=== PATIENT | male | born 1960 | race Caucasian/White ===

== ENCOUNTER 2025-04-30 03:41 | Inpatient (IN) | payer MEDICAID, OTHER ==
[~2025-04-30] VITALS: Ht 175.3 cm; Wt 67.1 kg
[2025-04-30] MEDS ORDERED: BUPR-50 PO (04:03)
[2025-04-30] MEDS ORDERED: BENZ-247 PO (04:04)
[2025-04-30 04:06] LABS: PLATELET COUNT (AUTO) 270 K/uL (150-450); RED BLOOD CELL COUNT(AUTO) 5.10 MIL/uL (4.50-5.90); RED CELL DISTRIBUTION WIDTH 13.9 % (11.5-14.5); WHITE BLOOD COUNT (AUTO) 8.6 K/uL (4.5-11.0)
[2025-04-30 04:06] LABS: COVID AG,FIA SOURCE NASAL SWAB
[2025-04-30 04:14] LABS: CALCIUM, TOTAL 9.7 mg/dL (8.8-10.5); CREATININE 0.98 mg/dL (0.60-1.30); GLOMERULAR FILTR. RATE CALC > 60 mL/min (>60); GLUCOSE,RANDOM 101 mg/dL (70-110); SODIUM SERUM 133 mmol/L (136-145); UREA NITROGEN, BLOOD 17 mg/dL (7-18)
[2025-04-30 04:15] LABS: SARS-COV2 (COVID) ANTIGEN,FIA Negative (Negative)
[2025-04-30 04:58] LABS: APPEARANCE,URINE CLEAR (CLEAR); GLUCOSE, URINE (UA) NEGATIVE (NEGATIVE); LEUKOCYTE ESTERASE ,URINE NEGATIVE (NEGATIVE); NITRATE,URINE NEGATIVE (NEGATIVE); OCCULT BLOOD,URINE NEGATIVE (NEGATIVE); PH,URINE DRUG SCREEN 7.0 (5.0-8.0); SPECIFIC GRAVITIY, URINE 1.016 (1.003-1.030)
[2025-04-30 05:03] LABS: ALCOHOL, URINE DRUG SCREEN NEGATIVE (NEGATIVE); AMPHET/METH SCREEN,URINE NEGATIVE (NEGATIVE); BARBITURATE SCREEN, URINE NEGATIVE (NEGATIVE); CANNABINOID SCREEN,URINE POSITIVE (NEGATIVE); COCAINE SCREEN,URINE NEGATIVE (NEGATIVE); METHADONE SCREEN, URINE NEGATIVE (NEGATIVE)
[2025-04-30 08:06] VITALS: O2SAT 100
[2025-04-30 11:23] VITALS: BP 108/73; PULSE 87; RESP 17; TEMP 97.3; O2SAT 98
[2025-04-30] MEDS ORDERED: INFLUENZA VIRUS VACCINE TVS (6MO+) 2025-26/PF 45 MCG/0.5 ML SYRINGE IM. ONE (13:15)
[2025-04-30] MEDS: NICOTINE POLACRILEX 2 MG LOZENGE PO PRN (18:34)
[2025-04-30 20:20] VITALS: BP 103/59; PULSE 78; RESP 16; TEMP 97.4; O2SAT 96
[2025-04-30] MEDS ORDERED: DOCUSATE SODIUM 100 MG CAPSULE PO PRN (21:15)
[2025-04-30] MEDS ORDERED: ONDANSETRON 4 MG TABLET PO PRN (21:15)
[2025-04-30] MEDS ORDERED: NICOTINE 14 MG/24 HOUR PATCH TD PRN (21:15)
[2025-04-30] MEDS ORDERED: MAG HYDROX/ALUMINUM HYD/SIMETH ES 30 ML SUSPENSION UDCUP PO PRN (21:15)
[2025-04-30] MEDS ORDERED: ALBUTEROL SULFATE HFA 90 MCG/PUFF 8 GM INHALER IH PRN (21:15)
[2025-04-30] MEDS ORDERED: MAGNESIUM HYDROXIDE SUSPENSION 30 ML UDCUP PO PRN (21:15)
[2025-04-30] MEDS ORDERED: IBUPROFEN 400 MG TABLET PO PRN (21:15)
[2025-04-30] MEDS ORDERED: LOPERAMIDE HCL 2 MG CAPSULE PO PRN (21:15)
[2025-04-30] MEDS ORDERED: PETROLATUM,WHITE 28 GM JELLY TP PRN (21:15)
[2025-04-30] MEDS ORDERED: GuaiFENesin/D-METHORPHAN [SUGAR-FREE] 200-20MG/10 ML SYRUP UDCUP PO PRN (21:15)
[2025-04-30] MEDS ORDERED: ACETAMINOPHEN 325 MG TABLET PO PRN (21:15)
[2025-05-01 08:29] VITALS: BP 95/69; PULSE 87; RESP 18; TEMP 97.4; O2SAT 99
[2025-05-01 09:32] LABS: CHOL/HDL RATIO 3.0 (4.2-7.3); LDL CHOL (CALC.) 95.0 mg/dL (0-130)
[2025-05-01] MEDS: ZOLPIDEM TARTRATE 10 MG TABLET PO PRN (21:02)
[2025-05-01 21:52] VITALS: RESP 18
[2025-05-02 05:08] LABS: HEPATITIS C AB (EIA) Non Reactive (Non Reactive)
[2025-05-02 09:17] VITALS: BP 107/74; PULSE 76; RESP 18; TEMP 97.2; O2SAT 99
[2025-05-02 20:15] VITALS: BP 101/68; PULSE 93; RESP 18; TEMP 97.3; O2SAT 99
[2025-05-03 08:12] VITALS: BP 95/70; PULSE 78; RESP 16; TEMP 98.1; O2SAT 99
[2025-05-03 20:11] VITALS: BP 105/78; PULSE 83; RESP 15; TEMP 97.5; O2SAT 99
[2025-05-04 08:12] VITALS: BP 97/65; PULSE 86; RESP 15; TEMP 97.3; O2SAT 99
[2025-05-04 21:13] VITALS: BP 85/63; PULSE 81; RESP 18; TEMP 96.6; O2SAT 98
[2025-05-05 08:14] VITALS: BP 101/73; PULSE 80; RESP 16; TEMP 97.4; O2SAT 100
[2025-05-05] MEDS ORDERED: HALO100V36 IM (14:48)
== END 2025-05-05 16:15 | disposition home or self-care (01) | DRG 750 ==
LOC: EMS 04:17 → EDBEDREQSVC 05:49 → B3A 10:51
PROVIDERS: ADMIT Psychiatry & Neurology Psychiatry; ATTEND Psychiatry & Neurology Psychiatry
DX: F20.9 Schizophrenia, unspecified (principal); E87.1 Hypo-osmolality and hyponatremia; F17.210 Nicotine dependence, cigarettes, uncomplicated; Z20.822 Contact with and (suspected) exposure to COVID-19; F41.9 Anxiety disorder, unspecified; G47.00 Insomnia, unspecified; F43.9 Reaction to severe stress, unspecified; Z91.148 Patient's other noncompliance with medication regimen for other reason
CPT/HCPCS: 80048; 80061; 80307; 81003; 83036; 84443; 85025; 86803; 87340; G0480; J1631